=== PATIENT | male | born 1980 | race Caucasian/White ===

== ENCOUNTER 2016-05-01 13:17 | Outpatient (CLI) | END 2016-05-01 13:18 | disposition home or self-care (01) | LOC: LAB 13:17 | PROVIDERS: ATTEND Nurse Practitioner Family | DX: Z00.00 Encounter for general adult medical examination without abnormal findings (principal) | CPT/HCPCS: 87015; 87045; 87070; 87081; 87186; 87205; 87493; 87899 ==

== ENCOUNTER 2016-09-04 14:28 | Outpatient (CLI) | END 2016-09-04 14:29 | disposition home or self-care (01) | LOC: LAB 14:28 | PROVIDERS: ATTEND Nurse Practitioner Family | DX: W19.XXXA Unspecified fall, initial encounter (principal) | CPT/HCPCS: 87070; 87186; 87880 ==

== ENCOUNTER 2016-11-20 15:55 | Outpatient (CLI) | END 2016-11-20 15:56 | disposition home or self-care (01) | LOC: LAB 15:55 | PROVIDERS: ATTEND Nurse Practitioner Family | DX: X50.1XXA Overexertion from prolonged static or awkward postures, initial encounter (principal) ==

== ENCOUNTER 2017-05-05 09:44 | Outpatient (CLI) | END 2017-05-05 09:45 | disposition home or self-care (01) | LOC: LAB 09:44 | DX: W19.XXXA Unspecified fall, initial encounter (principal) | CPT/HCPCS: 87015; 87045; 87070; 87493; 87899 ==

== ENCOUNTER 2017-12-31 08:25 | Outpatient (CLI) | END 2017-12-31 08:26 | disposition home or self-care (01) | LOC: LAB 08:25 | DX: W57.XXXA Bitten or stung by nonvenomous insect and other nonvenomous arthropods, initial encounter (principal) ==

== ENCOUNTER 2018-05-04 08:37 | Outpatient (CLI) | END 2018-05-04 08:38 | disposition home or self-care (01) | LOC: LAB 08:37 | DX: X50.1XXA Overexertion from prolonged static or awkward postures, initial encounter (principal) | CPT/HCPCS: 87015; 87045; 87070; 87186; 87205; 87493; 87899 ==

== ENCOUNTER 2018-09-02 13:29 | Outpatient (CLI) | END 2018-09-02 13:30 | disposition home or self-care (01) | LOC: LAB 13:29 | DX: W19.XXXA Unspecified fall, initial encounter (principal) | CPT/HCPCS: 87070; 87086; 87205 ==